=== PATIENT | male | born 1960 | race Caucasian/White ===

== ENCOUNTER → 2016-07-10 | Outpatient (CLI) | payer OTHER ==
[~2016-07-10] MED LIST: ALBU0.08 NEB; ALBU6.7H INH; ASPI1TAB73 PO; GABA300C5 PO; GLIM1TAB PO; LISI10TA3 PO; LOMO2.5T PO; METF500T PO; MOME1AER2 INH; PROM25TA5 PO; ROPI0.5T PO; SIMV40TA PO; SITA50 PO
[2016-07-10 13:02] LABS: AUTOMATED NEUTROPHIL # 4.9 TH/MM3 (1.8-7.7); BASOPHIL # 0.1 TH/MM3 (0-0.2); BASOPHIL % 0.7 % (0.0-2.0); EOSINOPHIL # 0.2 TH/MM3 (0-0.4); EOSINOPHIL % 2.2 % (0.0-4.0); HEMATOCRIT 46.2 % (39.0-51.0); HEMO FLAGS DIFF FINAL; LYMPH % 29.1 % (9.0-44.0); LYMPHOCYTE # 2.3 TH/MM3 (1.0-4.8); MEAN CELL VOLUME 88.1 FL (80.0-100.0); MEAN CORPUSCULAR HEMOGLOBIN 30.3 PG (27.0-34.0); MEAN CORPUSCULAR HGB CONC 34.4 % (32.0-36.0); MONO % 5.5 % (0.0-8.0); NEUT % 62.5 % (16.0-70.0); PLATELET COUNT 271 TH/MM3 (150-450); RED BLOOD COUNT 5.25 MIL/MM3 (4.50-5.90); RED CELL DISTRIBUTION WIDTH 13.3 % (11.6-17.2); WHITE BLOOD COUNT 7.8 TH/MM3 (4.0-11.0)
[2016-07-10 13:20] LABS: MICRO ALBUMIN RANDOM URINE RAW 23.5 MG/L (0.0-30.0)
[2016-07-10 13:29] LABS: ANION GAP 5 MEQ/L (5-15); AST (GOT) 18 U/L (15-37); BICARBONATE 28.8 MEQ/L (21.0-32.0); BLOOD UREA NITROGEN 15 MG/DL (7-18); CHLORIDE 101 MEQ/L (98-107); GLOMERULAR FILTRATION RATE 47 ML/MIN (>89); GLUCOSE,FASTING 221 MG/DL (74-99); POTASSIUM 4.2 MEQ/L (3.5-5.1); SODIUM (NA) 135 MEQ/L (136-145)
[2016-07-10 13:33] LABS: ALKALINE PHOSPHATASE 73 U/L (45-117); ALT (GPT) 31 U/L (12-78); HDL CHOLESTEROL 33.8 MG/DL (40.0-60.0); LDL CHOLESTEROL 74 MG/DL (0-99); TOTAL BILIRUBIN ADULT 0.3 MG/DL (0.2-1.0)
[2016-07-11 12:54] LABS: HEMOGLOBIN A1a 1.2 %; HEMOGLOBIN A1b 2.1 %; HEMOGLOBIN Ao 80.4 %; HEMOGLOBIN LA1C 2.8 %
== END ==
LOC: PLAB 08:40
PROVIDERS: ATTEND Pediatrics
DX: E11.9 Type 2 diabetes mellitus without complications (principal)
CPT/HCPCS: 36415; 80053; 80061; 82043; 83036; 85025

== ENCOUNTER → 2016-09-11 | Outpatient (CLI) | payer OTHER ==
[2016-09-11 09:43] LABS: AUTOMATED NEUTROPHIL # 5.1 TH/MM3 (1.8-7.7); BASOPHIL % 0.6 % (0.0-2.0); EOSINOPHIL # 0.7 TH/MM3 (0-0.4); HEMATOCRIT 45.5 % (39.0-51.0); HEMO FLAGS DIFF FINAL; LYMPH % 25.8 % (9.0-44.0); LYMPHOCYTE # 2.2 TH/MM3 (1.0-4.8); MEAN CELL VOLUME 86.7 FL (80.0-100.0); MEAN CORPUSCULAR HEMOGLOBIN 30.5 PG (27.0-34.0); MEAN CORPUSCULAR HGB CONC 35.2 % (32.0-36.0); MONO % 5.8 % (0.0-8.0); NEUT % 59.8 % (16.0-70.0); PLATELET COUNT 223 TH/MM3 (150-450); RED BLOOD COUNT 5.25 MIL/MM3 (4.50-5.90); RED CELL DISTRIBUTION WIDTH 13.3 % (11.6-17.2); WHITE BLOOD COUNT 8.5 TH/MM3 (4.0-11.0)
[2016-09-11 10:14] LABS: HEMOGLOBIN A1a 1.3 %; HEMOGLOBIN A1b 2.2 %; HEMOGLOBIN Ao 79.6 %; HEMOGLOBIN LA1C 2.8 %; HEMOGLOBIN P3 4.4 %
[2016-09-11 10:29] LABS: ALKALINE PHOSPHATASE 78 U/L (45-117); ALT (GPT) 32 U/L (12-78); ANION GAP 8 MEQ/L (5-15); AST (GOT) 17 U/L (15-37); BICARBONATE 27.4 MEQ/L (21.0-32.0); BLOOD UREA NITROGEN 15 MG/DL (7-18); CHLORIDE 104 MEQ/L (98-107); GLOMERULAR FILTRATION RATE 69 ML/MIN (>89); GLUCOSE,FASTING 168 MG/DL (74-99); POTASSIUM 4.2 MEQ/L (3.5-5.1); SODIUM (NA) 139 MEQ/L (136-145); TOTAL BILIRUBIN ADULT 0.3 MG/DL (0.2-1.0)
== END ==
LOC: PLAB 08:00
DX: E78.5 Hyperlipidemia, unspecified (principal); I12.9 Hypertensive chronic kidney disease with stage 1 through stage 4 chronic kidney disease, or unspecified chronic kidney disease; N18.3 Chronic kidney disease, stage 3 (moderate); E11.40 Type 2 diabetes mellitus with diabetic neuropathy, unspecified; E11.22 Type 2 diabetes mellitus with diabetic chronic kidney disease; E66.01 Morbid (severe) obesity due to excess calories; Z68.36 Body mass index [BMI] 36.0-36.9, adult
CPT/HCPCS: 36415; 80053; 82043; 83036; 83690; 85025

== ENCOUNTER 2017-01-15 21:23 | Emergency (ER) | payer OTHER ==
[~2017-01-15] VITALS: Ht 175.3 cm; Wt 107.3 kg
[~2017-01-15 21:23] MED LIST changes: -LOMO2.5T PO
[2017-01-15 21:45] VITALS: BP 113/60; PULSE 76; RESP 14; TEMP 98.3; O2SAT 95
[2017-01-15] MEDS ORDERED: SODIUM CHLOR 0.9% 1000 ML INJ 1,000 ML IV ONE ×2 (22:00→23:30)
[2017-01-15] MEDS ORDERED: SODIUM CHLORIDE 0.9% FLUSH 10 ML FLUSH IVF PRN (22:00)
[2017-01-15] MEDS ORDERED: ONDANSETRON HCL 4 MG/2 ML VIAL IV PUSH ONE (22:00)
[2017-01-15] MEDS ORDERED: KETOROLAC TROMETHAMINE 30 MG/ML (IVP) VIAL IV PUSH ONE (22:00)
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
[2017-01-15 22:15] VITALS: BP 115/75; PULSE 71; RESP 16; O2SAT 96
[2017-01-15 22:15] LABS: AUTOMATED NEUTROPHIL # 3.7 TH/MM3 (1.8-7.7); BASOPHIL # 0.1 TH/MM3 (0-0.2); BASOPHIL % 0.9 % (0.0-2.0); EOSINOPHIL # 0.2 TH/MM3 (0-0.4); EOSINOPHIL % 3.1 % (0.0-4.0); HEMATOCRIT 45.7 % (39.0-51.0); HEMO FLAGS DIFF FINAL; LYMPH % 38.2 % (9.0-44.0); LYMPHOCYTE # 2.7 TH/MM3 (1.0-4.8); MEAN CELL VOLUME 86.9 FL (80.0-100.0); MEAN CORPUSCULAR HEMOGLOBIN 29.9 PG (27.0-34.0); MEAN CORPUSCULAR HGB CONC 34.4 % (32.0-36.0); MONO % 5.3 % (0.0-8.0); NEUT % 52.5 % (16.0-70.0); PLATELET COUNT 222 TH/MM3 (150-450); RED BLOOD COUNT 5.26 MIL/MM3 (4.50-5.90); RED CELL DISTRIBUTION WIDTH 11.8 % (11.6-17.2); WHITE BLOOD COUNT 7.1 TH/MM3 (4.0-11.0)
--- NOTE | 2017-01-15 22:24 | RADRPT ---
EXAM DATE/TIME: 01/15/2017 22:00 [facility] COMPARISON: No previous studies available for comparison. INDICATIONS : Chest pain. MEDICAL HISTORY : Hypertension. Myocardial infarction. Chronic obstructive pulmonary disease. Coronary artery disea se. SURGICAL HISTORY : Cardiac stent. ENCOUNTER: Initial ACUITY: 1 day PAIN SCORE: 0/10 LOCATION: Bilateral chest FINDINGS: A single view of the chest demonstrates the lungs to be symmetrically aerated without evidence of mas s, infiltrate or effusion. Minimal basal atelectasis. The cardiomediastinal contours are unremarkable . Osseous structures are intact. CONCLUSION: 1. Minimal basal atelectasis. No focal infiltrate or effusion. Venkatesh Rahman MD on January 15, 2017 at 22:22 Board Certified Radiologist. This report was verified electronically.
[2017-01-15 22:27] LABS: CHLORIDE 93 MEQ/L (98-107); POTASSIUM 3.7 MEQ/L (3.5-5.1); SODIUM (NA) 128 MEQ/L (136-145)
[2017-01-15 22:31] LABS: ANION GAP 7 MEQ/L (5-15); BICARBONATE 27.6 MEQ/L (21.0-32.0)
[2017-01-15 23:18] LABS: ALKALINE PHOSPHATASE 97 U/L (45-117); ALT (GPT) 33 U/L (12-78); AST (GOT) 18 U/L (15-37); BLOOD UREA NITROGEN 20 MG/DL (7-18); CREATINE KINASE 235 U/L (39-308); GLOMERULAR FILTRATION RATE 49 ML/MIN (>89); MAGNESIUM 1.8 MG/DL (1.5-2.5); TOTAL BILIRUBIN ADULT 0.4 MG/DL (0.2-1.0)
[2017-01-15] MEDS ORDERED: INSULIN HUMAN REGULAR 1,000 UNITS/10 ML VIAL IV PUSH ONE (23:30)
[2017-01-15] MEDS ORDERED: ZOFR4TAB3 SL (23:35)
[2017-01-15 23:46] VITALS: BP 104/60; PULSE 78; RESP 18; O2SAT 94
[2017-01-15 23:47] LABS: CKMB 2.3 NG/ML (0.5-3.6)
[2017-01-16 01:04] LABS: BLOOD, URINE TRACE (NEG); KETONE, URINE NEG (NEG); NITRITE,URINE NEG (NEG); PH, URINE 5.5 (5.0-8.5)
[2017-01-16 01:10] VITALS: BP 103/64; PULSE 70; RESP 18; TEMP 97.6; O2SAT 98
[2017-01-16 01:11] LABS: GLUCOSE,URINE 1000 OR GREATER mg/dL (NEG); URINE COLOR YELLOW (YELLW/STRAW)
[2017-01-16 01:13] LABS: COMMENT (UR) CULT NOT INDICATED; CULTURE IF INDICATED CULT NOT INDICATED; RBC, URINE 0-3 /hpf (0-3); SQUAMOUS EPITHELIAL CELL URINE 0-5 /hpf (0-5); WBC, URINE 0-2 /hpf (0-5)
[2017-01-16 01:29] VITALS: BP 108/68
--- NOTE | 2017-01-16 15:36 | EKG ---
Date Performed: 01/15/2017 Time Performed: 22:07:40 PTAGE: 56 years EKG: Sinus rhythm WITH OCCASIONAL VENTRICULAR PREMATURE COMPLEXES MARKED LEFT AXIS DEVIATION INTRAVENTRICULAR CONDUCTI ON DELAY PROBABLE LATERAL MYOCARDIAL INFARCTION ABNORMAL ECG NO PREVIOUS TRACING DOCTOR: Iftikhar Quiroga Interpretating Date/Time 01/16/2017 15:34:30
== END 2017-01-16 01:33 | disposition home or self-care (01) ==
LOC: PHED 21:23
DX: E11.65 Type 2 diabetes mellitus with hyperglycemia (principal); N28.9 Disorder of kidney and ureter, unspecified; I10 Essential (primary) hypertension; F17.200 Nicotine dependence, unspecified, uncomplicated; R94.31 Abnormal electrocardiogram [ECG] [EKG]; Z79.84 Long term (current) use of oral hypoglycemic drugs
CPT/HCPCS: 71010; 80053; 81001; 82550; 82552; 83690; 83735; 84484; 85025; 93005; 96361; 96374; 96375; 99285; J1815; J1885; J2405; J7030

== ENCOUNTER → 2017-02-08 | Outpatient (CLI) | payer OTHER ==
[~2017-02-08] MED LIST changes: -PROM25TA5 PO; +ZOFR4TAB3 SL
[2017-02-08 12:47] LABS: AUTOMATED NEUTROPHIL # 5.6 TH/MM3 (1.8-7.7); BASOPHIL % 0.4 % (0.0-2.0); EOSINOPHIL # 0.1 TH/MM3 (0-0.4); EOSINOPHIL % 1.4 % (0.0-4.0); HEMO FLAGS DIFF FINAL; LYMPH % 25.6 % (9.0-44.0); LYMPHOCYTE # 2.2 TH/MM3 (1.0-4.8); MEAN CORPUSCULAR HEMOGLOBIN 29.8 PG (27.0-34.0); MEAN CORPUSCULAR HGB CONC 33.5 % (32.0-36.0); MONO % 6.5 % (0.0-8.0); NEUT % 66.1 % (16.0-70.0); PLATELET COUNT 208 TH/MM3 (150-450); RED BLOOD COUNT 5.28 MIL/MM3 (4.50-5.90); RED CELL DISTRIBUTION WIDTH 12.7 % (11.6-17.2); WHITE BLOOD COUNT 8.4 TH/MM3 (4.0-11.0)
[2017-02-08 13:19] LABS: AST (GOT) 16 U/L (15-37); BICARBONATE 26.8 MEQ/L (21.0-32.0); BLOOD UREA NITROGEN 13 MG/DL (7-18); GLOMERULAR FILTRATION RATE 84 ML/MIN (>89); GLUCOSE,FASTING 162 MG/DL (74-99)
[2017-02-08 13:30] LABS: ALKALINE PHOSPHATASE 78 U/L (45-117); ALT (GPT) 32 U/L (12-78); ANION GAP 8 MEQ/L (5-15); CHLORIDE 103 MEQ/L (98-107); HDL CHOLESTEROL 33.2 MG/DL (40.0-60.0); LDL CHOLESTEROL 101 MG/DL (0-99); POTASSIUM 4.1 MEQ/L (3.5-5.1); SODIUM (NA) 138 MEQ/L (136-145); TOTAL BILIRUBIN ADULT 0.3 MG/DL (0.2-1.0)
[2017-02-08 16:35] LABS: HEMOGLOBIN A1a 1.4 %; HEMOGLOBIN A1b 2.6 %; HEMOGLOBIN Ao 76.2 %; HEMOGLOBIN LA1C 2.7 %; HEMOGLOBIN P3 4.4 %
[2017-02-12 09:46] LABS: URINE ANABASINE 8.2 ng/mL (<2.0); URINE COTININE >1200 ng/mL (<5.0); URINE NICOTINE 1020 ng/mL (<2.0); URINE NORNICOTINE 68 ng/mL (<2.0)
== END ==
LOC: PLAB 10:05
PROVIDERS: ATTEND Nurse Practitioner Family
DX: R73.03 Prediabetes (principal); J45.909 Unspecified asthma, uncomplicated; E78.5 Hyperlipidemia, unspecified; J44.9 Chronic obstructive pulmonary disease, unspecified; E11.9 Type 2 diabetes mellitus without complications; N28.9 Disorder of kidney and ureter, unspecified
CPT/HCPCS: 80053; 80061; 80323; 83036; 84443; 85025; G0480

== ENCOUNTER 2017-09-23 16:02 | Emergency (ER) | payer OTHER ==
[~2017-09-23] VITALS: Ht 175.3 cm; Wt 107.3 kg
[2017-09-23 16:16] VITALS: BP 111/66; PULSE 79; RESP 16; TEMP 99.4; O2SAT 97
[2017-09-23] MEDS ORDERED: ROPI3TAB PO (16:47)
[2017-09-23] MEDS ORDERED: METF1000 PO (16:47)
[2017-09-23] MEDS ORDERED: KETOROLAC TROMETHAMINE 60 MG/2 ML (IM) VIAL IM ONE (17:15)
--- NOTE | 2017-09-23 17:48 | RADRPT ---
EXAM DATE/TIME: 09/23/2017 17:28 [facility] COMPARISON: No previous studies available for comparison. INDICATIONS : Fell on stairs, has all over right knee pain MEDICAL HISTORY : Diabetes mellitus type II. Cardiovascular disease. SURGICAL HISTORY : None. ENCOUNTER: Initial ACUITY: 1 day PAIN SCORE: 8/10 LOCATION: Right knee FINDINGS: Four view examination of the right knee demonstrates no evidence of fracture or dislocation. Bony mi neralization is normal. The articular surfaces are intact. The suprapatellar soft tissues have a no rmal configuration. CONCLUSION: Unremarkable examination of the right knee. Zach Seaman MD on September 23, 2017 at 17:45 Board Certified Radiologist. This report was verified electronically.
[2017-09-23] MEDS ORDERED: IBUP1TAB7 PO (18:16)
[2017-09-23] MEDS ORDERED: TRAM50 PO (18:16)
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
== END 2017-09-23 18:38 | disposition home or self-care (01) ==
LOC: PHEFT 16:02
DX: S83.91XA Sprain of unspecified site of right knee, initial encounter (principal); J45.909 Unspecified asthma, uncomplicated; I10 Essential (primary) hypertension; E78.00 Pure hypercholesterolemia, unspecified; I25.10 Atherosclerotic heart disease of native coronary artery without angina pectoris; G25.81 Restless legs syndrome; E11.40 Type 2 diabetes mellitus with diabetic neuropathy, unspecified; J44.9 Chronic obstructive pulmonary disease, unspecified; X50.1XXA Overexertion from prolonged static or awkward postures, initial encounter
CPT/HCPCS: 73564; 96372; 99283; E0113; J1885

== ENCOUNTER 2017-11-20 00:43 | Emergency (ER) | payer OTHER ==
[~2017-11-20] VITALS: Ht 175.3 cm; Wt 108.0 kg
[~2017-11-20 00:43] MED LIST changes: +IBUP1TAB7 PO; +METF1000 PO; -METF500T PO; -MOME1AER2 INH; -ROPI0.5T PO; +ROPI3TAB PO; +TRAM50 PO; -ZOFR4TAB3 SL
[2017-11-20 00:45] VITALS: BP 136/85; PULSE 78; RESP 20; TEMP 98.1; O2SAT 96
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
[2017-11-20] MEDS ORDERED: PROPARACAINE HCL 0.5% OPHT SOLN 15 ML BTL EACH EYE ONE (01:15)
[2017-11-20] MEDS ORDERED: PERC5TAB12 PO (01:20)
[2017-11-20] MEDS ORDERED: ERYTOIN10 EACH EYE (01:20)
[2017-11-20] MEDS ORDERED: oxyCODONE/ACETAMINOPHEN 5 MG/325 MG TAB PO ONE (01:30)
[2017-11-20] MEDS ORDERED: ERYTHROMYCIN 0.5% OPTH OINT 3.5 GM TUBO EACH EYE ONE (01:30)
[2017-11-20 02:40] VITALS: BP 144/82
== END 2017-11-20 02:36 | disposition home or self-care (01) ==
LOC: PHED 00:43
DX: H16.133 Photokeratitis, bilateral (principal); W89.8XXA Exposure to other man-made visible and ultraviolet light, initial encounter; I10 Essential (primary) hypertension; E78.5 Hyperlipidemia, unspecified; I25.10 Atherosclerotic heart disease of native coronary artery without angina pectoris; E11.40 Type 2 diabetes mellitus with diabetic neuropathy, unspecified; J44.9 Chronic obstructive pulmonary disease, unspecified; R12 Heartburn; I25.2 Old myocardial infarction; F17.200 Nicotine dependence, unspecified, uncomplicated; Z79.82 Long term (current) use of aspirin; Z95.5 Presence of coronary angioplasty implant and graft
CPT/HCPCS: 99283

== ENCOUNTER 2018-05-14 18:43 | Observation (INO) ==
[2018-05-14] MEDS ORDERED: Dextrose 50% in Water 50 ML Vial IV.PUSH PRN ×2 (20:23→23:15)
[2018-05-14] MEDS ORDERED: Sod Chloride 0.9% Inj 1,000 ML IV.SIG SCH ×2 (20:30)
--- NOTE | 2018-05-14 20:39 | ED ---
HPI General Chief Complaint: Recheck/Abnormal Lab/Rx Stated Complaint: Elevated Glucose/Elevated Liver Enzymes Time Seen by Provider: 05/14/18 20:19 Source: patient and family History of Present Illness HPI narrative: 57-year-old male with a past medical history of coronary artery disease, type 1 diabetes, hypertension presents to the emergency room for the second time in 2 days complaining of abdominal pain, nausea, vomiting, uncontrolled blood sugar and abnormal lab work as an outpatient by the primary care physician. On the first presentation to the emergency room on May 12 patient was a urinary tract infection with markedly elevated liver enzymes and hyperglycemia. Patient was treated and discharged home. Following outpatient treatment patient had a negative hepatic panel however the liver enzymes were elevated to the 600 range with a persistent uncontrolled hyperglycemia. Today the patient was sent to the emergency room due to nausea and vomiting despite outpatient treatment with insulin sliding scale, oral antibiotics and p.o. hydration. Related Data Home Medications Medication Instructions Recorded Confirmed albuterol sulfate 2.5 mg INHALATION Q4H PRN 05/11/18 05/14/18 albuterol sulfate [Proventil HFA] 2 puff INHALATION Q4-6H PRN 05/11/18 05/14/18 aspirin 81 mg PO DAILY 05/11/18 05/14/18 gabapentin 300 mg PO TID 05/11/18 05/14/18 glipizide 10 mg PO DAILY 05/11/18 05/14/18 insulin detemir U-100 [Levemir 20 unit SUBCUT DAILY 05/11/18 05/14/18 U-100 Insulin] ropinirole 3 mg PO HS 05/11/18 05/14/18 simvastatin 40 mg PO QPM 05/11/18 05/14/18 sitagliptin [Januvia] 100 mg PO DAILY 05/11/18 05/14/18 Allergies Allergy/AdvReac Type Severity Reaction Status Date / Time atorvastatin Allergy Unknown Muscle Pain Verified 05/14/18 18:49 rosuvastatin Allergy Unknown Muscle Pain Verified 05/14/18 18:49 Review of Systems Constitutional Denies fever(s) Eyes Denies change in vision ENT Denies headache(s) and Denies nasal congestion Cardiovascular Denies chest pain Respiratory Denies dyspnea Gastrointestinal Reports abdominal pain, Reports nausea and Reports vomiting Genitourinary Denies difficulty urinating Musculoskeletal Denies myalgias Integumentary/Breasts Denies rash Neurologic Denies headache(s) Psychiatric Denies depression Endocrine Denies polyuria Hematologic/Lymphatic Denies easy bruising PMFSH Social History Social History Substance History: No History of Abuse Second Hand Smoke Exposure: Yes Smoking Status: Heavy tobacco smoker Tobacco Type: Cigarettes How Often Do You Have a Drink Containing Alcohol: Never Recent Travel in [facility] within the Last 8 Weeks: No Recent Out of Country Travel within the Last 8 Weeks: No Immunization History Tetanus Immunization: <5 Years Exam Narrative Exam Narrative: GENERAL: Patient is alert and oriented -3 SKIN: Focused skin assessment warm/dry. HEAD: Atraumatic. Normocephalic. EYES: Pupils equal and round. No scleral icterus. No injection or drainage. ENT: No nasal bleeding or discharge. Mucous membranes pink and moist. NECK: Trachea midline. No JVD. CARDIOVASCULAR: Regular rate and rhythm. No murmur appreciated. RESPIRATORY: No accessory muscle use. Clear to auscultation. Breath sounds equal bilaterally. GASTROINTESTINAL: Abdomen soft, tender right upper quadrant, nondistended. Hepatic and splenic margins not palpable. MUSCULOSKELETAL: No obvious deformities. No clubbing. No cyanosis. No edema. NEUROLOGICAL: Awake and alert. No obvious cranial nerve deficits. Motor grossly within normal limits. Normal speech. PSYCHIATRIC: Appropriate mood and affect; insight and judgment normal. Course Reevaluation(s) Reevaluation #1: Patient condition improved during the ER course. Patient failed outpatient treatment for hyperglycemia despite increased insulin doses. Also liver enzymes continued to be elevated as well as today it shows acute renal injury with bandemia. I personally reexamined and counseled the patient about his diagnosis and results. Initial Documented Vital Signs Temperature 98.6 F 05/14/18 18:45 Pulse Rate 93 H 05/14/18 18:45 Respiratory Rate 16 05/14/18 18:45 Blood Pressure 112/61 05/14/18 18:45 Pulse Oximetry 96 05/14/18 18:45 Last Documented Vital Signs Temperature 98.2 F 05/15/18 01:58 Pulse Rate 82 05/15/18 01:58 Respiratory Rate 18 05/15/18 01:58 Blood Pressure 117/62 05/15/18 01:58 Pulse Oximetry 93 L 05/15/18 01:58 Medical Decision Making MDM Narrative Medical Screen Exam Complete: Yes Emergency Medical Condition: Yes Lab Data Result diagrams: 05/14/18 20:30 05/14/18 20:30 Lab Results 05/14/18 05/14/18 05/14/18 Range/Units 18:55 20:30 20:30 CBC w Diff Slide review pending WBC 6.8 (4.0-11.0) th/mm3 RBC 4.74 (4.50-5.90) mil/mm3 Hgb 14.3 (13.0-17.0) gm/dL Hct 42.1 (39.0-51.0) % MCV 88.9 (80.0-100.0) fL MCH 30.1 (27.0-34.0) pg MCHC 33.8 (32.0-36.0) % RDW 12.6 (11.6-17.2) % Plt Count 331 (150-450) th/mm3 MPV 10.0 (7.0-11.0) fL WBC Differential Manual diff final Seg Neuts % (Manual) 76 H (16-70) % Band Neuts % (Manual) 10 H (0-6) % Lymphocytes % (Manual) 9 (9-44) % Monocytes % (Manual) 4 (0-8) % Eosinophils % (Manual) 1 (0-4) % Abs Neuts (Manual) 5.8 (1.8-7.7) th/mm3 Differential Comment . Platelet Estimate Normal (Normal) Platelet Morphology Normal (Normal) Stomatocytes 2+ H (None) Sodium 130 L (136-145) meq/L Potassium 4.1 (3.5-5.1) meq/L Chloride 93 L (98-107) meq/L Carbon Dioxide 29.0 (21.0-32.0) meq/L Anion Gap 8 (5-15) meq/L BUN 18 (7-18) mg/dL Creatinine 1.60 H (0.60-1.30) mg/dL Estimated GFR 45 L (>89) mL/min POC Glucose 432 H (68-110) mg/dl Random Glucose 399 H (74-106) mg/dL Lactic Acid (0.4-2.0) mmol/L Calcium 9.5 (8.5-10.1) mg/dL Magnesium 2.1 (1.5-2.5) mg/dL Total Bilirubin 2.9 H (0.2-1.0) mg/dL AST 164 H (15-37) U/L ALT 414 H (12-78) U/L Alkaline Phosphatase 481 H (45-117) U/L Troponin I Less than 0.02 L (0.02-0.05) ng/mL Total Protein 7.6 (6.4-8.2) g/dL Albumin 3.0 L (3.4-5.0) g/dL Beta-Hydroxybutyric Acd 0.07 (0.00-0.39) mmol/L Urine Color (Yellw/Straw) Urine Clarity (Clear) Urine pH (5.0-8.5) Ur Specific Franklin (1.002-1.035) Urine Protein (Neg-Trace) mg/dL Urine Glucose (UA) (Negative) mg/dL Urine Ketones (Negative) mg/dL Urine Occult Blood (Negative) Urine Nitrate (Negative) Urine Bilirubin (Negative) Urine Ictotest (Negative) Urine Urobilinogen (Less than 2) mg/dL Ur Leukocyte Esterase (Negative) Urine RBC (0-3) /hpf Urine WBC (0-5) /hpf Ur Squamous Epith Cells (0-5) /hpf Micro UA Comment Ur Microscopic Review Urine Culture Comments 05/14/18 05/14/18 05/14/18 Range/Units 21:09 21:39 22:10 CBC w Diff WBC (4.0-11.0) th/mm3 RBC (4.50-5.90) mil/mm3 Hgb (13.0-17.0) gm/dL Hct (39.0-51.0) % MCV (80.0-100.0) fL MCH (27.0-34.0) pg MCHC (32.0-36.0) % RDW (11.6-17.2) % Plt Count (150-450) th/mm3 MPV (7.0-11.0) fL WBC Differential Seg Neuts % (Manual) (16-70) % Band Neuts % (Manual) (0-6) % Lymphocytes % (Manual) (9-44) % Monocytes % (Manual) (0-8) % Eosinophils % (Manual) (0-4) % Abs Neuts (Manual) (1.8-7.7) th/mm3 Differential Comment Platelet Estimate (Normal) Platelet Morphology (Normal) Stomatocytes (None) Sodium (136-145) meq/L Potassium (3.5-5.1) meq/L Chloride (98-107) meq/L Carbon Dioxide (21.0-32.0) meq/L Anion Gap (5-15) meq/L BUN (7-18) mg/dL Creatinine (0.60-1.30) mg/dL Estimated GFR (>89) mL/min POC Glucose 401 H 314 H (68-110) mg/dl Random Glucose (74-106) mg/dL Lactic Acid (0.4-2.0) mmol/L Calcium (8.5-10.1) mg/dL Magnesium (1.5-2.5) mg/dL Total Bilirubin (0.2-1.0) mg/dL AST (15-37) U/L ALT (12-78) U/L Alkaline Phosphatase (45-117) U/L Troponin I (0.02-0.05) ng/mL Total Protein (6.4-8.2) g/dL Albumin (3.4-5.0) g/dL Beta-Hydroxybutyric Acd (0.00-0.39) mmol/L Urine Color [place] H (Yellw/Straw) Urine Clarity Clear (Clear) Urine pH 6.0 (5.0-8.5) Ur Specific Franklin 1.020 (1.002-1.035) Urine Protein Trace (Neg-Trace) mg/dL Urine Glucose (UA) 1000 or greater H (Negative) mg/dL Urine Ketones Negative (Negative) mg/dL Urine Occult Blood Negative (Negative) Urine Nitrate Negative (Negative) Urine Bilirubin Negative (Negative) Urine Ictotest Negative (Negative) Urine Urobilinogen 0.2 (Less than 2) mg/dL Ur Leukocyte Esterase Negative (Negative) Urine RBC 0-3 (0-3) /hpf Urine WBC 0-5 (0-5) /hpf Ur Squamous Epith Cells 0-5 (0-5) /hpf Micro UA Comment Culture not ind Ur Microscopic Review Microscopic reviewed Urine Culture Comments Culture not ind 05/14/18 05/14/18 05/15/18 Range/Units 22:36 22:50 00:17 CBC w Diff WBC (4.0-11.0) th/mm3 RBC (4.50-5.90) mil/mm3 Hgb (13.0-17.0) gm/dL Hct (39.0-51.0) % MCV (80.0-100.0) fL MCH (27.0-34.0) pg MCHC (32.0-36.0) % RDW (11.6-17.2) % Plt Count (150-450) th/mm3 MPV (7.0-11.0) fL WBC Differential Seg Neuts % (Manual) (16-70) % Band Neuts % (Manual) (0-6) % Lymphocytes % (Manual) (9-44) % Monocytes % (Manual) (0-8) % Eosinophils % (Manual) (0-4) % Abs Neuts (Manual) (1.8-7.7) th/mm3 Differential Comment Platelet Estimate (Normal) Platelet Morphology (Normal) Stomatocytes (None) Sodium (136-145) meq/L Potassium (3.5-5.1) meq/L Chloride (98-107) meq/L Carbon Dioxide (21.0-32.0) meq/L Anion Gap (5-15) meq/L BUN (7-18) mg/dL Creatinine (0.60-1.30) mg/dL Estimated GFR (>89) mL/min POC Glucose 271 H 255 H (68-110) mg/dl Random Glucose (74-106) mg/dL Lactic Acid Less than 0.1 L (0.4-2.0) mmol/L Calcium (8.5-10.1) mg/dL Magnesium (1.5-2.5) mg/dL Total Bilirubin (0.2-1.0) mg/dL AST (15-37) U/L ALT (12-78) U/L Alkaline Phosphatase (45-117) U/L Troponin I (0.02-0.05) ng/mL Total Protein (6.4-8.2) g/dL Albumin (3.4-5.0) g/dL Beta-Hydroxybutyric Acd (0.00-0.39) mmol/L Urine Color (Yellw/Straw) Urine Clarity (Clear) Urine pH (5.0-8.5) Ur Specific Franklin (1.002-1.035) Urine Protein (Neg-Trace) mg/dL Urine Glucose (UA) (Negative) mg/dL Urine Ketones (Negative) mg/dL Urine Occult Blood (Negative) Urine Nitrate (Negative) Urine Bilirubin (Negative) Urine Ictotest (Negative) Urine Urobilinogen (Less than 2) mg/dL Ur Leukocyte Esterase (Negative) Urine RBC (0-3) /hpf Urine WBC (0-5) /hpf Ur Squamous Epith Cells (0-5) /hpf Micro UA Comment Ur Microscopic Review Urine Culture Comments 05/15/18 05/15/18 Range/Units 01:24 03:18 CBC w Diff WBC (4.0-11.0) th/mm3 RBC (4.50-5.90) mil/mm3 Hgb (13.0-17.0) gm/dL Hct (39.0-51.0) % MCV (80.0-100.0) fL MCH (27.0-34.0) pg MCHC (32.0-36.0) % RDW (11.6-17.2) % Plt Count (150-450) th/mm3 MPV (7.0-11.0) fL WBC Differential Seg Neuts % (Manual) (16-70) % Band Neuts % (Manual) (0-6) % Lymphocytes % (Manual) (9-44) % Monocytes % (Manual) (0-8) % Eosinophils % (Manual) (0-4) % Abs Neuts (Manual) (1.8-7.7) th/mm3 Differential Comment Platelet Estimate (Normal) Platelet Morphology (Normal) Stomatocytes (None) Sodium (136-145) meq/L Potassium (3.5-5.1) meq/L Chloride (98-107) meq/L Carbon Dioxide (21.0-32.0) meq/L Anion Gap (5-15) meq/L BUN (7-18) mg/dL Creatinine (0.60-1.30) mg/dL Estimated GFR (>89) mL/min POC Glucose 283 H 269 H (68-110) mg/dl Random Glucose (74-106) mg/dL Lactic Acid (0.4-2.0) mmol/L Calcium (8.5-10.1) mg/dL Magnesium (1.5-2.5) mg/dL Total Bilirubin (0.2-1.0) mg/dL AST (15-37) U/L ALT (12-78) U/L Alkaline Phosphatase (45-117) U/L Troponin I (0.02-0.05) ng/mL Total Protein (6.4-8.2) g/dL Albumin (3.4-5.0) g/dL Beta-Hydroxybutyric Acd (0.00-0.39) mmol/L Urine Color (Yellw/Straw) Urine Clarity (Clear) Urine pH (5.0-8.5) Ur Specific Franklin (1.002-1.035) Urine Protein (Neg-Trace) mg/dL Urine Glucose (UA) (Negative) mg/dL Urine Ketones (Negative) mg/dL Urine Occult Blood (Negative) Urine Nitrate (Negative) Urine Bilirubin (Negative) Urine Ictotest (Negative) Urine Urobilinogen (Less than 2) mg/dL Ur Leukocyte Esterase (Negative) Urine RBC (0-3) /hpf Urine WBC (0-5) /hpf Ur Squamous Epith Cells (0-5) /hpf Micro UA Comment Ur Microscopic Review Urine Culture Comments Imaging Data Radiologist's impression: Gallbladder Ultrasound 05/14/18 20:36 CONCLUSION: 1. Enlarged liver with mild fatty infiltration. 2. Contracted gallbladder. Discharge Plan Discharge Disposition Patient Disposition: ED Admit(ED Internal Use Only) Discharge Condition Condition: Stable Discharge Order Discharge Orders: ED Use Only Admit Order (Routine); Ordered 05/15/18 Ordered By: Tao Zacarias Discharge Details Diagnosis: Acute hyperglycemia, Bandemia, Elevated liver enzymes, YENIFER (acute kidney injury ) Physicians Team ED Provider: Tao Zacarias Primary Care Provider: Zach Mayo Attending Provider: Pearl Crowder Discharge Interventions Interventions: ED Discharge Assessment Last Done: 05/15/18 01:40 Status ED Status: Left Department Discharge Information Discharge Date/Time: 05/15/18 01:40
[2018-05-14] MEDS ORDERED: Piperacil/Tazo 3.375 GM Premix 50 ML IV.SIG ONE (20:50)
[2018-05-14 21:07] LABS: Hematocrit 42.1 % (39.0-51.0); Hemoglobin 14.3 gm/dL (13.0-17.0); Mean Corpuscular HGB Conc 33.8 % (32.0-36.0); Mean Corpuscular Hemoglobin 30.1 pg (27.0-34.0); Mean Corpuscular Volume 88.9 fL (80.0-100.0); Platelet Count 331 th/mm3 (150-450); Red Blood Count 4.74 mil/mm3 (4.50-5.90); Red Cell Distribution Width 12.6 % (11.6-17.2); White Blood Count 6.8 th/mm3 (4.0-11.0)
[2018-05-14 21:16] LABS: Chloride 93 meq/L (98-107); Potassium 4.1 meq/L (3.5-5.1); Sodium 130 meq/L (136-145)
--- NOTE | 2018-05-14 21:36 | ECG ---
Date Performed: 05/14/2018 Time Performed: 20:52:20 PTAGE: 57 years EKG: Sinus rhythm BORDERLINE LEFT AXIS DEVIATION MODERATE INTRAVENTRICULAR CONDUCTION DELAY NONSPECIFIC T-WAVE ABNORMA LITY ABNORMAL ECG PREVIOUS TRACING : 05/12/2018 00.55 Since the previous tracing, no significant change noted DOCTOR: Zechariah Dodge Interpretating Date/Time 05/14/2018 21:35:50
[2018-05-14 21:40] LABS: Eosinophils 1 % (0-4); Lymphocytes 9 % (9-44); Monocytes 4 % (0-8); Platelet Estimate Normal (Normal); Platelet Morphology Normal (Normal); Stomatocytes 2+
--- NOTE | 2018-05-14 22:01 | US ---
EXAM DATE: 05/14/2018 9:56 PM EST AGE/SEX: 57 years / Male INDICATIONS: Nausea/Vomiting. CLINICAL DATA: This is the patient's initial encounter. Patient reports that signs and symptoms have been present for 1 day and indicates a pain score of 0/10. MEDICAL/SURGICAL HISTORY: Chronic obstructive pulmonary disease. Hypertension. High Cholestero l. Myocardial infarct. peripheral neuropathy. . Heart artery stent. COMPARISON: [facility], CT ABDOMEN & PELVIS W CONTRAST, 05/12/2018. . MEASUREMENTS: Liver:__ 20.3 cm. Common Bile Duct:__ Nonvisualized. FINDINGS: Liver: Increased echotexture without focal lesion or ductal dilation. Portal Vein: Hepatopedal flow seen in portal vein. Common Duct: Not well visualized. Nothing to suggest distention. Gallbladder: Contracted. No perceptible sludge or stones. No wall thickening or pericholecystic flui d seen. Pancreas: Visualized portions within normal limits. Right Kidney: Normal echotexture and cortical thickness. No mass or hydronephrosis. Other: None. CONCLUSION: 1. Enlarged liver with mild fatty infiltration. 2. Contracted gallbladder. Electronically signed by: Zach Vazquez MD 05/14/2018 10:00 PM EST
[2018-05-14 22:03] LABS: Alanine Aminotransferase 414 U/L (12-78); Alkaline Phosphatase 481 U/L (45-117); Anion Gap 8 meq/L (5-15); Aspartate Aminotransferase 164 U/L (15-37); Beta Hydroxybutyric Acid 0.07 mmol/L (0.00-0.39); Blood Urea Nitrogen 18 mg/dL (7-18); Calcium 9.5 mg/dL (8.5-10.1); Glomerular Filtration Rate 45 mL/min (>89); Glucose,Random 399 mg/dL (74-106); Magnesium 2.1 mg/dL (1.5-2.5); Total Protein 7.6 g/dL (6.4-8.2)
[2018-05-14 22:25] LABS: Clarity,Urine Clear (Clear); Leukocyte Esterase,Urine Negative (Negative); Nitrite,Urine Negative (Negative); Urobilinogen,Urine 0.2 mg/dL (Less than 2)
[2018-05-14 22:32] LABS: Bilirubin,Urine Negative (Negative); Color,Urine Orange (Yellw/Straw); Ictotest,Urine Negative (Negative)
[2018-05-14 22:34] LABS: RBC,Urine 0-3 /hpf (0-3); Squamous Epithelial Cell,Urine 0-5 /hpf (0-5); WBC,Urine 0-5 /hpf (0-5)
[2018-05-14] MEDS ORDERED: Bisacodyl 10 MG Supp RECTAL PRN (23:15)
[2018-05-15] MEDS: Heparin - SQ 10,000 UNITS/ML Vial SQ SCH ×3 (00:26→15:48)
[2018-05-15] MEDS: Sod Chloride 0.9% Inj 1,000 ML IV.CONT SCH ×3 (00:27→21:27)
[2018-05-15] MEDS: Insulin NovoLOG Aspart Correctional Sugar Inj SQ SCH ×5 (03:19→21:37)
[2018-05-15 06:54] LABS: Hematocrit 39.8 % (39.0-51.0); Hemoglobin 13.5 gm/dL (13.0-17.0); Mean Corpuscular HGB Conc 33.9 % (32.0-36.0); Mean Corpuscular Volume 88.6 fL (80.0-100.0); Mean Platelet Volume 9.1 fL (7.0-11.0); Platelet Count 312 th/mm3 (150-450); Red Cell Distribution Width 12.9 % (11.6-17.2); White Blood Count 7.2 th/mm3 (4.0-11.0)
[2018-05-15 07:08] LABS: Albumin 2.6 g/dL (3.4-5.0); Blood Urea Nitrogen 14 mg/dL (7-18); Calcium 8.1 mg/dL (8.5-10.1); Carbon Dioxide 25.5 meq/L (21.0-32.0); Chloride 102 meq/L (98-107); Glucose,Random 259 mg/dL (74-106); Potassium 3.7 meq/L (3.5-5.1)
[2018-05-15 07:09] LABS: Alanine Aminotransferase 353 U/L (12-78); Anion Gap 8 meq/L (5-15); Aspartate Aminotransferase 171 U/L (15-37); Glomerular Filtration Rate 78 mL/min (>89); Sodium 135 meq/L (136-145)
[2018-05-15 07:30] LABS: Alkaline Phosphatase 429 U/L (45-117); Total Protein 6.7 g/dL (6.4-8.2)
[2018-05-15 08:24] LABS: Eosinophils 2 % (0-4); Lymphocytes 12 % (9-44); Monocytes 3 % (0-8); Platelet Estimate Normal (Normal); Platelet Morphology Normal (Normal)
[2018-05-15] MEDS: Insulin Detemir Inj 1,000 UNIT/10 ML Vial SQ SCH (09:10)
[2018-05-15] MEDS: Senna/Docusate Sodium 8.6/50 MG Tablet PO SCH ×2 (09:15→21:38)
[2018-05-15 14:43] LABS: Lipase 424 U/L (73-393)
[2018-05-15 14:49] LABS: Creatine Kinase 258 U/L (39-308)
[2018-05-15 14:50] LABS: Hepatitis A IgM Antibody Nonreactive (Nonreactive); Hepatitits B Surface Antigen Nonreactive (Nonreactive)
[2018-05-15 14:55] LABS: C-Reactive Protein 2.45 mg/dL (0.00-0.30)
[2018-05-15] MEDS ORDERED: Diatrizoate Meglum/Diatrizoate Sod Liq 9 ML UDC PO ONE (17:01)
--- NOTE | 2018-05-15 17:04 | P.HPIM ---
History of Present Illness Primary Care Physician: Zach Mayo Chief Complaint: abnormal lfts History of Present Illness: 57-year-old poorly controlled diabetic sent to the emergency room because of abnormal LFTs. Patient states that he has been feeling poorly for a week due to cold symptoms, he was seen in the emergency room and given some antibiotics for a urinary tract infection. Patient was feeling rundown and had nausea vomiting. On follow-up with primary care physician he was noted to have elevated liver function test, his blood sugars have been very uncontrolled as well. His primary care physician increased his long-acting insulin to 70 units, and follow-up lab work revealed continued elevated liver function tests so patient was referred to the emergency room. He denies fevers, chills, he only had one episode of abdominal pain nausea vomiting. He denies diarrhea, shortness of breath cough congestion headache or other associated symptoms. He denies any changes in his medications or over-the -counter medication use. 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 Review of Systems: all other systems reviewed are negative [facility] Social History Social History Substance History: No History of Abuse Second Hand Smoke Exposure: Yes Smoking Status: Heavy tobacco smoker Tobacco Type: Cigarettes How Often Do You Have a Drink Containing Alcohol: Never Recent Travel in [facility] within the Last 8 Weeks: No Recent Out of Country Travel within the Last 8 Weeks: No Immunization History Tetanus Immunization: <5 Years Medications and Allergies Allergies Allergy/AdvReac Type Severity Reaction Status Date / Time atorvastatin Allergy Unknown Muscle Pain Verified 05/14/18 18:49 rosuvastatin Allergy Unknown Muscle Pain Verified 05/14/18 18:49 Home Medications Medication Instructions Recorded Confirmed Type albuterol sulfate 2.5 mg INHALATION Q4H PRN 05/11/18 05/14/18 History albuterol sulfate [Proventil HFA] 2 puff INHALATION Q4-6H PRN 05/11/18 05/14/18 History aspirin 81 mg PO DAILY 05/11/18 05/14/18 History gabapentin 300 mg PO TID 05/11/18 05/14/18 History glipizide 10 mg PO DAILY 05/11/18 05/14/18 History insulin detemir U-100 [Levemir 20 unit SUBCUT DAILY 05/11/18 05/14/18 History U-100 Insulin] ropinirole 3 mg PO HS 05/11/18 05/14/18 History simvastatin 40 mg PO QPM 05/11/18 05/14/18 History sitagliptin [Januvia] 100 mg PO DAILY 05/11/18 05/14/18 History Active Medications: Active Medications Al Hydroxide/Mg Hydroxide (Milk Of Magnesia Liq) 30 ml PO Q12H PRN PRN Reason: Mild Constipation Bisacodyl (Dulcolax Supp) 10 mg RECTAL DAILY PRN PRN Reason: SEVERE CONSITIPATION Dextrose (D50w Vial) 50 ml IV.PUSH UNSCH PRN PRN Reason: PER HYPOGLYCEMIA PROTOCOL Glucagon (Glucagon Inj) 1 mg OTHER PRN PRN PRN Reason: for Hypoglycemia Protocol Heparin Sodium (Porcine) (Heparin Inj) 5,000 units SQ Q8H [facility] Last Admin: 05/15/18 15:48 Dose: 5,000 units Sodium Chloride (Ns Inj) 1,000 mls @ 100 mls/hr IV.CONT .Q10H [facility] Last Admin: 05/15/18 09:14 Dose: 100 mls/hr Insulin Aspart (Novolog Insulin Correctional Sugar Inj) 0 unit SQ ACHS AND 3AM MANGO; Protocol Last Admin: 05/15/18 12:26 Dose: 3 unit Insulin Detemir (Levemir Inj) 20 unit SQ DAILY [facility] Last Admin: 05/15/18 09:10 Dose: 20 unit Lactulose (Lactulose Liq) 30 ml PO DAILY PRN PRN Reason: SEVERE CONSITIPATION Nicotine (Habitrol 21 Mg Patch.24 Hr) 1 patch T-DERMAL DAILY [facility] Ondansetron HCl (Zofran Inj) 4 mg IV.PUSH Q6H PRN PRN Reason: NAUSEA OR VOMITING Patch Removal (Remove Old Patch) 1 each T-DERMAL DAILY [facility] Senna/Docusate Sodium (Libby-Colace) 1 tab PO BID [facility] Last Admin: 05/15/18 09:15 Dose: Not Given Sennosides (Senokot) 17.2 mg PO Q12H PRN PRN Reason: Moderate Constipation Sodium Chloride (Ns Flush) 2 ml IV.FLUSH BID [facility] Last Admin: 05/15/18 09:14 Dose: 2 ml Sodium Chloride (Ns Flush) 2 ml IV.FLUSH PRN PRN PRN Reason: FLUSH AFTER USING IV ACCESS Physical Exam Vital signs: Last Vital Signs Temp 98.4 F 05/15/18 15:55 Pulse 81 05/15/18 15:55 Resp 20 05/15/18 15:55 BP 150/92 H 05/15/18 15:55 Pulse Ox 97 05/15/18 15:55 Intake & Output 05/13/18 05/14/18 05/15/18 05/16/18 06:59 06:59 06:59 06:59 Intake Total 2050 / 2050 1000 / 1000 Output Total 300 / 300 Balance 1750 / 1750 1000 / 1000 Weight 115.1 kg Narrative: Well-developed well-nourished obese 57-year-old white male Awake alert oriented x3 no acute distress HEENT normocephalic atraumatic pupils equal reactive sclerae anicteric oral mucosa is moist poor dentition no gum lip dental lesions otherwise noted Neck supple no JVD trachea midline thyroid smooth not enlarged Anterior chest wall without mass or tenderness to palpation Heart S1-S2 regular without murmurs gallops clicks Lungs clear bilateral no wheezes no rhonchi no dullness to percussion Back exam no CVA tenderness or mass, mild hypertrophy right paraspinal musculature Abdomen protuberant nondistended no significant tenderness to palpation small umbilical hernia nontender positive bowel sounds no significant mass, hepatomegaly Lymph nodes no inguinal axillary cervical adenopathy appreciated Extremities no clubbing cyanosis edema no calf tenderness Neuro cranial nerves II through XII grossly intact strength is 5 out of 5 symmetrical no clonus no rigidity sensation appears intact Skin exam warm and dry with decreased turgor no open sores or wounds Results Labs CBC & Chem 7: 05/15/18 06:18 05/15/18 06:18 Imaging Impressions Gallbladder Ultrasound 05/14/18 20:36 CONCLUSION: 1. Enlarged liver with mild fatty infiltration. 2. Contracted gallbladder. CT scan abdomen and pelvis 05/12/2018 CONCLUSION:1. No acute abnormality is identified to explain the abdominal pain.2. There is a nonspecific enlarged right external iliac lymph node a left para-aortic lymph node.Electronically signed by: Zach Valera MD 05/12/2018 3 :06 AM PADMINI [place] VTE Risk Assessment Alecia VTE Risk Assessment: Moderate/High Risk (score >= 2) Alecia Risk Assessment Model: Point Value = 1 Point Value = 2 Point Value = 3 Point Value = 5 Age 41-60 Minor surgery BMI > 25 kg/m2 Swollen legs Varicose veins or History of unexplained or recurrent spontaneous Oral contraceptives or hormone replacement Sepsis (< 1 month) Serious lung disease, including pneumonia (< 1 month) Abnormal pulmonary function Acute myocardial infarction Congestive heart failure (< 1 month) History of inflammatory bowel disease Medical patient at bed rest Age 61-74 Arthroscopic surgery Major open surgery (> 45 min) Laparoscopic surgery (> 45 min) Malignancy Confined to bed (> 72 hours) Immobilizing plaster cast Central venous access Age >= 75 History of VTE Family history of VTE Factor V Leiden Prothrombin [id number] Lupus anticoagulant Anticardiolipin antibodies Elevated serum homocysteine Heparin-induced thrombocytopenia Other congenital or acquired thrombophilia Stroke (< 1 month) Elective arthroplasty Hip, pelvis, or leg fracture Acute spinal cord injury (< 1 month) Prophylaxis Regimen: Total Risk Factor Score Risk Level Prophylaxis Regimen 0-1 Low Early ambulation 2 Moderate Order ONE of the following: *Sequential Compression Device (SCD) *Heparin 5000 units SQ BID 3-4 Higher Order ONE of the following medications: *Heparin 5000 units SQ TID *Enoxaparin/Lovenox 40 mg SQ daily (WT < 150 kg, CrCl > 30 mL/min) *Enoxaparin/Lovenox 30 mg SQ daily (WT < 150 kg, CrCl > 10-29 mL/min) *Enoxaparin/Lovenox 30 mg SQ BID (WT < 150 kg, CrCl > 30 mL/min) AND/OR *Sequential Compression Device (SCD) 5 or more Highest Order ONE of the following medications: *Heparin 5000 units SQ TID (Preferred with Epidurals) *Enoxaparin/Lovenox 40 mg SQ daily (WT < 150 kg, CrCl > 30 mL/min) *Enoxaparin/Lovenox 30 mg SQ daily (WT < 150 kg, CrCl > 10-29 mL/min) *Enoxaparin/Lovenox 30 mg SQ BID (WT < 150 kg, CrCl > 30 mL/min) AND *Sequential Compression Device (SCD) Assessment and Plan Plan ABD PAIN with recent viral syndrome -continue supportive care, no evidence of fever or leukocytosis, acute viral hepatitis panel negative LFT ELEVATION-CT scan abdomen and pelvis with no abnormality, ultrasound negative, lipase elevated, due to acute pancreatitis?, questionable passed gallstone , discussed with GI, follow-up MRCP, check triglycerides HTN start BRYAN inhibitor DM insulin dependent uncontrolled, last a1c 12 01/2017 DIABETIC PERIPHERAL NEUROPATHY cont home Neurontin CAD w stent, continue daily aspirin, statin when LFTs better OBESITY bmi 37 Recent UTI-culture 05/12/2018 grew beta strep will continue keflex for 5 days TOBACCO ABUSE w nicotine addiction and withdrawl, cessation counseling and nicoderm topically H&P: Quality VTE Deep Vein Thrombosis/Pulmonary Embolism Present on Admission: No
[2018-05-15] MEDS ORDERED: Morphine Sulfate Inj 2 MG/ML Vial IV.PUSH PRN (17:38)
[2018-05-15] MEDS ORDERED: glipiZIDE 10 MG Tablet PO SCH (17:45)
[2018-05-15] MEDS: Gabapentin 300 MG Capsule PO SCH (18:17)
[2018-05-16] MEDS: Heparin - SQ 10,000 UNITS/ML Vial SQ SCH ×2 (00:17→06:30)
[2018-05-16] MEDS: Insulin NovoLOG Aspart Correctional Sugar Inj SQ SCH ×3 (03:28→11:49)
[2018-05-16] MEDS: Sod Chloride 0.9% Inj 1,000 ML IV.CONT SCH (06:29)
[2018-05-16 06:49] LABS: Chloride 103 meq/L (98-107); Potassium 3.7 meq/L (3.5-5.1); Sodium 135 meq/L (136-145)
[2018-05-16 06:54] LABS: Albumin 2.4 g/dL (3.4-5.0); Anion Gap 7 meq/L (5-15); Calcium 7.5 mg/dL (8.5-10.1); Carbon Dioxide 25.5 meq/L (21.0-32.0); Glucose,Random 229 mg/dL (74-106)
[2018-05-16 06:55] LABS: Blood Urea Nitrogen 11 mg/dL (7-18)
[2018-05-16 06:58] LABS: Glomerular Filtration Rate Greater Than 89 mL/min (>89)
[2018-05-16 06:59] LABS: Total Protein 6.6 g/dL (6.4-8.2)
[2018-05-16 07:00] LABS: Alkaline Phosphatase 383 U/L (45-117)
[2018-05-16 07:52] LABS: Alanine Aminotransferase 275 U/L (12-78)
[2018-05-16 07:53] LABS: Aspartate Aminotransferase 103 U/L (15-37)
--- NOTE | 2018-05-16 07:58 | MB ---
cc: Bria Aviles MD,Zach Dixon DATE: 05/15/2018 REASON FOR CONSULTATION: Abnormal liver function tests, nausea, vomiting, possible pancreatitis. HISTORY OF PRESENT ILLNESS: Mr. Lacy is a 57-year-old gentleman with poorly controlled diabetes. He basically came back to the emergency room for elevated glucose levels. He said he was having some nonspecific complaints of nausea and vomiting. He was evaluated earlier in the week in the emergency room and was found to have elevated glucose and elevated liver function tests. He has now returned with persistent elevation of his glucose levels, as well as persistent elevation of his liver function tests. According to his , he had some blood work done at the end of April through his PCP, which showed some elevation of the liver function tests, but this seemed to have gotten acutely worse. Currently, he denies any nausea or vomiting. He has no abdominal pain, no hematemesis or hematochezia. PAST MEDICAL HISTORY: Significant for insulin-dependent diabetes, peripheral neuropathy, obesity, coronary artery disease with stent placement, hypertriglyceridemia, hypertension, dyslipidemia, lumbar radiculopathy. SOCIAL HISTORY: The patient quit alcohol 20 years ago. Smokes about 1 pack of cigarettes daily. Denies any other substance abuse. ALLERGIES: ATORVASTATIN. MEDICATIONS: Include: 1. Albuterol inhaler. 2. Aspirin. 3. Gabapentin. 4. Glipizide. 5. Insulin. 6. Ropinirole. 7. Simvastatin. 8. Januvia. PHYSICAL EXAMINATION: GENERAL: Reveals an obese man, in no apparent distress. VITAL SIGNS: Stable. HEAD AND NECK: Slightly icteric sclerae. CHEST: Bilateral air entry with rales. ABDOMEN: Obese, somewhat firm, nontender. No hepatosplenomegaly appreciated. CENTRAL NERVOUS SYSTEM: Nonfocal. RECTAL: Deferred at this time. LABORATORY DATA: Reveal total bilirubin 2.8, AST 171, ALT 353, alkaline phosphatase 429, lipase 424, hemoglobin of 13.5 with platelet counts of 312,000. Serology reveals hepatitis profile which is negative. A gallbladder ultrasound shows enlarged liver with fatty infiltration, contracted gallbladder, no other findings. A CT scan done on 05/12/2018 showed a nonspecific enlarged right external iliac lymph node, otherwise was unremarkable. IMPRESSION: Elevated liver function tests of unclear etiology, possible pancreatitis. RECOMMENDATIONS: MRCP has been requested. Continue to monitor labs. Liver function tests do seem to show some improvement. He probably has underlying fatty liver. Januvia could be a possible culprit in terms of pancreatitis, although he states he has been on it at least for 4-6 months. Autoimmune panel has also been requested. Based on the MRCP results, further recommendations to follow. Thank you for this referral. MD GUSTAVO Jerome/mao/nichole , 05:44 PM , 05:52 PM
--- NOTE | 2018-05-16 08:41 | P.PN ---
Physical Exam Vital signs: Vital Signs 05/15/18 12:00 05/15/18 15:55 05/15/18 20:00 Temperature 98.2 F 98.4 F 96.7 F L Pulse Rate 75 81 77 Respiratory Rate 18 20 20 Blood Pressure 157/91 H 150/92 H 125/89 Pulse Oximetry 96 97 92 L 05/16/18 00:00 Temperature 97.7 F Pulse Rate 79 Respiratory Rate 20 Blood Pressure 122/70 Pulse Oximetry 93 L Intake & Output 05/15/18 05/16/18 05/16/18 18:59 06:59 18:59 Intake Total 1000 / 1000 3290 / 3290 Balance 1000 / 1000 3290 / 3290 Weight 115.4 kg Intake: IV 1000 / 1000 2810 / 2810 NS Inj 1,000 ML @ 100 mls/hr IV 1000 / 1000 2810 / 2810 .CONT .Q10H MANGO Rx#:[id number] Oral 480 / 480 Other: # Voids 5 3 Date of Last Bowel Movement 05/15/18 # Bowel Movements 1 Results - Labs CBC & Chem 7: 05/15/18 06:18 05/16/18 05:47 Laboratory Results - last 24 hr 05/15/18 05/15/18 05/15/18 06:18 10:05 11:50 Sodium Potassium Chloride Carbon Dioxide Anion Gap BUN Creatinine Estimated GFR POC Glucose 223 H Random Glucose Calcium Total Bilirubin AST ALT Alkaline Phosphatase Total Creatine Kinase 258 C-Reactive Protein 2.45 H Total Protein Albumin Lipase 424 H TSH 3.090 Acetaminophen Less than 2.0 L Hepatitis A IgM Ab Nonreactive Hep Bs Antigen Nonreactive Hep B Core IgM Ab Nonreactive Hep C IgG Ab Nonreactive 05/15/18 05/15/18 05/16/18 16:34 21:26 03:15 Sodium Potassium Chloride Carbon Dioxide Anion Gap BUN Creatinine Estimated GFR POC Glucose 307 H 248 H 219 H Random Glucose Calcium Total Bilirubin AST ALT Alkaline Phosphatase Total Creatine Kinase C-Reactive Protein Total Protein Albumin Lipase TSH Acetaminophen Hepatitis A IgM Ab Hep Bs Antigen Hep B Core IgM Ab Hep C IgG Ab 05/16/18 05/16/18 05:47 07:30 Sodium 135 L Potassium 3.7 Chloride 103 Carbon Dioxide 25.5 Anion Gap 7 BUN 11 Creatinine 0.88 Estimated GFR Greater than 89 POC Glucose 217 H Random Glucose 229 H Calcium 7.5 L Total Bilirubin 1.3 H AST 103 H ALT 275 H Alkaline Phosphatase 383 H Total Creatine Kinase C-Reactive Protein Total Protein 6.6 Albumin 2.4 L Lipase TSH Acetaminophen Hepatitis A IgM Ab Hep Bs Antigen Hep B Core IgM Ab Hep C IgG Ab Microbiology 05/14/18 20:55 Blood - Peripheral Aerobic Blood Culture - Preliminary No growth in 1 day 05/14/18 20:55 Blood - Peripheral Anaerobic Blood Culture - Preliminary No growth in 1 day 05/14/18 20:50 Blood - Peripheral Aerobic Blood Culture - Preliminary No growth in 1 day 05/14/18 20:50 Blood - Peripheral Anaerobic Blood Culture - Preliminary No growth in 1 day
[2018-05-16] MEDS: Insulin Detemir Inj 1,000 UNIT/10 ML Vial SQ SCH (09:03)
[2018-05-16] MEDS: Gabapentin 300 MG Capsule PO SCH ×2 (09:04→12:18)
[2018-05-16] MEDS: Senna/Docusate Sodium 8.6/50 MG Tablet PO SCH (09:05)
[2018-05-16] MEDS ORDERED: Sincalide Inj 5 MCG Vial IV.PUSH ONE (09:36)
--- NOTE | 2018-05-16 10:00 | NM ---
EXAM DATE: 05/16/2018 9:46 AM EST AGE/SEX: 57 years / Male INDICATIONS: Abdominal pain with nausea and vomiting. CLINICAL DATA: This is the patient's initial encounter. Patient reports that signs and symptoms have been present for 2 days and indicates a pain score of 6/10. MEDICAL/SURGICAL HISTORY: Chronic obstructive pulmonary disease. Myocardial infarction. Hyper tension. Coronary artery stent. COMPARISON: [facility], CT ABDOMEN & PELVIS W CONTRAST, 05/12/2018. . DOSE: 4.3 mCi Tc-99m mebrofenin i.v. Medication: 2.3 mcg Cholecystokinin IV No symptomatic response Cholecystokinin was administered by slow infusion over 8 minutes beginning at 60 min carlton kelly. TECHNIQUE: Following the intravenous administration of radiotracer, dynamic sequential images were pe rformed with continuous acquisition. Time-activity curves were generated. FINDINGS: Hepatic Kinetics: There is prompt uptake of radiotracer in the liver. No focal defects are seen. Ther e is normal rate of washout from the hepatic parenchyma. Biliary Clearance: Activity is first seen in the extrahepatic biliary system at 15 minutes. There is normal excretion into the small bowel. Gallbladder: Activity is first seen in the gallbladder at 15 minutes. Post-CCK: After CCK administration, there is emptying of the gallbladder with a 25% ejection fraction . Common bile duct kinetics are normal and there is no evidence of biliary obstruction. No symptomat ic response after cholecystokinin infusion. Biliary-Enteric Reflux: None observed. CONCLUSION: No sign of obstruction. Electronically signed by: Zach Ibarra MD 05/16/2018 9:58 AM EST
[2018-05-16 10:27] LABS: Cholesterol 397 mg/dL (120-200)
[2018-05-16 10:30] LABS: Chol/HDL Ratio 33.36 Ratio; HDL Cholesterol 11.9 mg/dL (40.0-60.0)
--- NOTE | 2018-05-16 10:49 | MR ---
EXAM DATE: 05/16/2018 10:27 AM EST AGE/SEX: 57 years / Male INDICATIONS: Pancreatitis. CLINICAL DATA: This is the patient's initial encounter. Patient reports that signs and symptoms have been present for 1 day and indicates a pain score of 5/10. MEDICAL/SURGICAL HISTORY: Hypertension. Diabetes mellitus type II. Coronary artery stent. COMPARISON: [facility], CT ABDOMEN & PELVIS W CONTRAST, 05/12/2018. . TECHNIQUE: Multiplanar, multisequence images of the abdomen were obtained without contrast including dedicated cholangiographic images. FINDINGS: Liver: The liver is homogeneous and normal in signal intensity with no focal defects. Intrahepatic Bile Ducts: There is no intrahepatic biliary ductal dilatation. Common Bile Duct: The common bile duct is normal in caliber No filling defects or obstructing lesio ns are identified. Gallbladder: The gallbladder is normal with no evidence for cholelithiasis, gallbladder wall thicken ing, or pericholecystic fluid. Pancreas: The pancreas appears normal in signal with no focal parenchymal abnormalities. The pancrea tic duct is normal in caliber with no filling defects, or obstructing lesions identified. CONCLUSION: No biliary duct dilatation. Electronically signed by: Zach Ibarra MD 05/16/2018 10:48 AM EST
[2018-05-16] MEDS ORDERED: Insulin Detemir Inj 1,000 UNIT/10 ML Vial SQ ONE (11:00)
[2018-05-16 11:07] LABS: Triglycerides 1087 mg/dL (42-150)
--- NOTE | 2018-05-16 15:26 | P.DS ---
Date of admission: 05/14/18 23:15 Primary care physician: Zach Mayo Attending physician on discharge: Chantel Montiel Anticipated date of discharge: 05/16/18 Brief History from admission: 57-year-old poorly controlled diabetic sent to the emergency room because of abnormal LFTs. Patient states that he has been feeling poorly for a week due to cold symptoms, he was seen in the emergency room and given some antibiotics for a urinary tract infection. Patient was feeling rundown and had nausea vomiting. On follow-up with primary care physician he was noted to have elevated liver function test, his blood sugars have been very uncontrolled as well. His primary care physician increased his long-acting insulin to 70 units , and follow-up lab work revealed continued elevated liver function tests so patient was referred to the emergency room. He denies fevers, chills, he only had one episode of abdominal pain nausea vomiting. He denies diarrhea, shortness of breath cough congestion headache or other associated symptoms. He denies any changes in his medications or [id number]-eicjqys medication use. Medical history: Insulin-dependent diabetes, peripheral neuropathy, obesity, coronary artery disease with stent, hypertriglyceridemia, hypertension, dyslipidemia, degenerative disc disease with lumbar radiculopathy, Surgical history: Cardiac stent placement Social history: Denies alcohol states quit 20 years ago, admits to smoking 1 pack/day Patient update on day of discharge: Patient underwent HIDA scan as well as MRCP studies today. Patient is currently doing well. Denies any chest pain, shortness of breath, fever or chills. He very much wants to go home. DS: Medications - Discharge Medications Prescriptions: gemfibrozil 600 mg PO BID #60 tab insulin aspart U-100 [Novolog U-100 Insulin aspart] 0 unit SUBCUT ACHS 30 Days ml insulin detemir U-100 [Levemir U-100 Insulin] 12 unit SUBCUT HS 30 Days ml DS: Summary Hospital Course: Mr. Lacy is a 57-year-old male with a history of diabetes mellitus who was admitted to the hospital due to elevated liver enzymes. GI was consulted. His AST, ALT and alk phos trended down during this admission. Hepatitis panel were negative. HIDA scan as well as MRCP were negative for any acute findings. Canteen Operator evaluated patient and indicated that 1 of the diabetic medications Januvia could be the culprit medication for elevated liver enzymes. Since patient is asymptomatic and his liver enzymes are trending down, I discussed with label press operator who agreed with our plan to discharge patient with outpatient follow-up with PCP as well as GI and 1 week repeat lab. During this admission, we also noted patient's elevated triglyceride over 1000. I discussed with patient that this could be a reason for pancreatitis in future. Since his liver enzymes are elevated, I advised patient to hold off using simvastatin for now. However, with regards to triglyceride we will prescribe gemfibrozil 600 mg twice daily. Additionally, with regards to diabetes patient is on Januvia, glipizide as well as long-acting insulin. I advised patient that if possible he should follow-up with an supervisor instant potato processing who can advise him on a better regimen for diabetes control. For now, will discontinue Januvia and glipizide and continue long-acting and short-acting insulin only for diabetes. All questions answered. Patient will follow up with PCP and obtain lipid panel as well as CMP in 1 week. - Time Spent with Patient Total time spent providing and/or coordinating discharge services: Less than 30 minutes - Quality: VTE Deep Vein Thrombosis/Pulmonary Embolism Present on Admission: No Exam Vital signs: Vital Signs 05/15/18 15:55 05/15/18 20:00 05/16/18 00:00 Temperature 98.4 F 96.7 F L 97.7 F Pulse Rate 81 77 79 Respiratory Rate 20 20 20 Blood Pressure 150/92 H 125/89 122/70 Pulse Oximetry 97 92 L 93 L 05/16/18 10:57 Temperature 97.5 F L Pulse Rate 71 Respiratory Rate 19 Blood Pressure 142/87 H Pulse Oximetry 94 L Intake & Output 05/15/18 05/16/18 05/16/18 18:59 06:59 18:59 Intake Total 1000 / 1000 3290 / 3290 Balance 1000 / 1000 3290 / 3290 Weight 115.4 kg Intake: IV 1000 / 1000 2810 / 2810 NS Inj 1,000 ML @ 100 mls/hr IV 1000 / 1000 2810 / 2810 .CONT .Q10H [facility] Rx#:[id number] Oral 480 / 480 Other: # Voids 5 3 Date of Last Bowel Movement 05/15/18 # Bowel Movements 1 Narrative: GENERAL: Alert, oriented x3, NAD. SKIN: Warm and dry. HEAD: Normocephalic. EYES: No scleral icterus. No injection or drainage. NECK: Supple, trachea midline. No JVD or lymphadenopathy. CARDIOVASCULAR: Regular rate and rhythm without murmurs, gallops, or rubs. RESPIRATORY: Breath sounds equal bilaterally. No accessory muscle use. GASTROINTESTINAL: Abdomen soft, non-tender, nondistended. MUSCULOSKELETAL: No cyanosis, or edema. BACK: Nontender without obvious deformity. No CVA tenderness. Results Procedures completed during hospitalization: None Labs on day of discharge: Labs from last 24 hours 05/16/18 05/16/18 05/16/18 11:18 07:30 05:47 Sodium 135 L Potassium 3.7 Chloride 103 Carbon Dioxide 25.5 Anion Gap 7 BUN 11 Creatinine 0.88 Estimated GFR Greater than 89 POC Glucose 217 H 217 H Random Glucose 229 H Calcium 7.5 L Total Bilirubin 1.3 H AST 103 H ALT 275 H Alkaline Phosphatase 383 H Total Protein 6.6 Albumin 2.4 L Triglycerides 1087 H Cholesterol 397 H LDL Cholesterol, Calc HDL Cholesterol 11.9 L Cholesterol/HDL Ratio 33.36 RIAN Screen 05/16/18 05/15/18 05/15/18 03:15 21:29 21:26 Sodium Potassium Chloride Carbon Dioxide Anion Gap BUN Creatinine Estimated GFR POC Glucose 219 H 248 H Random Glucose Calcium Total Bilirubin AST ALT Alkaline Phosphatase Total Protein Albumin Triglycerides Cholesterol LDL Cholesterol, Calc HDL Cholesterol Cholesterol/HDL Ratio RIAN Screen Pending 05/15/18 16:34 Sodium Potassium Chloride Carbon Dioxide Anion Gap BUN Creatinine Estimated GFR POC Glucose 307 H Random Glucose Calcium Total Bilirubin AST ALT Alkaline Phosphatase Total Protein Albumin Triglycerides Cholesterol LDL Cholesterol, Calc HDL Cholesterol Cholesterol/HDL Ratio RIAN Screen Preliminary micro results at discharge 05/14/18 20:50 Aerobic Blood Culture - Preliminary Blood - Peripheral No growth in 2 days Anaerobic Blood Culture - Preliminary Staphylococcus epidermidis 05/14/18 20:55 Aerobic Blood Culture - Preliminary Blood - Peripheral No growth in 2 days Anaerobic Blood Culture - Preliminary No growth in 2 days - Impressions ITS Impressions Gallbladder Ultrasound 05/14/18 20:36 CONCLUSION: 1. Enlarged liver with mild fatty infiltration. 2. Contracted gallbladder. Bile Acid Absorption NM 05/16/18 00:00 CONCLUSION: No sign of obstruction. Cholangiopancreatography MRI 05/16/18 00:00 CONCLUSION: No biliary duct dilatation. Discharge Plan - Discharge Disposition Patient Disposition: 01 Discharge Home - Discharge Condition Condition: Stable - Discharge Order Discharge Orders: Discharge Order (Routine); Ordered 05/16/18 Ordered By: Chantel Montiel - Discharge Details Anticipated Discharge Date: 05/16/18 Discharge Comment: Hold off using Simvastatin until labs are done in one week. Re-start only if labs are better and/or if your doctor recommends re-starting Simvastatin. - Physicians Team Primary Care Provider: Zach Mayo Attending Provider: Chantel Montiel Other Providers: Bria Aviles MD
[2018-05-16] MEDS ORDERED: Insulin Detemir Inj 1,000 UNIT/10 ML Vial SQ SCH (21:00)
== END 2018-05-16 15:56 | disposition home or self-care (01) ==
LOC: PHED 18:43 → PHEDA 18:43 → PH3 05-15 01:40
PROVIDERS: ADMIT Hospitalist; ATTEND Hospitalist